=== PATIENT | female | born 1960 | race Caucasian/White ===

== ENCOUNTER 2025-02-24 13:44 | Emergency (ER) | payer MEDICARE, SELFPAY ==
[2025-02-24 13:47] VITALS: BP 159/104
[2025-02-24 15:34] VITALS: BMI 23.5
[2025-02-24 15:49] VITALS: BP 170/99
--- NOTE | 2025-02-24 16:52 | ED.GENMED ---
History of Present Illness
General
Chief Complaint: Eye Problems
Source: patient
Exam Limitations: none
Time Seen by Provider: 02/24/25 16:27
History of Present Illness
History of Present Illness:
64yoF with no significant past medical history presenting for evaluation of right eye redness. Patient was doing some gardening outside yesterday. She started to notice a discomfort in her right eye and thought she may have gotten some mud in the
eye. She woke up this morning and noticed that her right eye was red. She went to urgent care for evaluation and a fluorescein stain was performed. She was diagnosed with a corneal abrasion and started on tobramycin drops. She was noted to be
hypertensive at urgent care and was sent to the ED for evaluation of this. She is asymptomatic from this perspective and denies any headache, chest pain, shortness of breath. She has no visual changes or photophobia. She wears contact lenses but
has been wearing glasses today.
Past History
Past History
ED Past Medical History: None
ED Past Surgical History: Gynecological (Total abdominal hysterectomy ) and Other (fibroid surgery )
Social History
Tobacco: Non-smoker
Alcohol: None
Personal:
Living: with family
Phy Exam
General Physical Exam
General Presentation: well appearing and no apparent distress
General Skin: warm, dry and cool
General Habitus: normal
General Mental: alert
ENT Exam
ENT Exam: normocephalic
Eye Exam
Eye Exam: PERRL, EOMI, visual kaye normal and other (R subconjunctival hemorrhage noted. No hyphema. PERRL. EOMs intact. Visual kaye normal. No uptake seen with fluorescein stain. Negative Magdalene sign.)
Right 20/: 60
Left 20/: 60
Pulmonary Exam
Pulmonary Exam: no respiratory distress
Neurological Exam
Neurological Exam: alert
Eleno Coma Scale
Eye Opening: Spontaneous
Verbal Response: Oriented
Motor Response: Obeys Commands
GCS Total Score: 15
Skin Exam
Skin Exam: normal color and warm/dry
Psychiatric Exam
Psychiatric Exam: normal mood/affect
Course
Orders/Labs/Results
Orders:
Orders
02/24/25 16:28
Visual Acuity- Treatment ONCE
02/24/25 17:23
Fluorescein Sodium [Ful-Vivien] 1 mg .ROUTE .STK-MED ONE
Tetracaine HCl [Tetracaine 0.5% Ophthalmic Solution] 1 drop .ROUTE .STK-MED ONE
Vital Signs
Initial and Last Documented VS:
Initial Vital Signs
Temp Pulse Resp BP Pulse Ox
98.5 F 110 16 159/104 100
02/24/25 13:47 02/24/25 13:47 02/24/25 13:47 02/24/25 13:47 02/24/25 13:47
Last Documented Vital Signs
Temp Pulse Resp BP Pulse Ox
98.5 F 98 22 168/99 98
02/24/25 13:47 02/24/25 17:10 02/24/25 15:49 02/24/25 17:10 02/24/25 17:10
MDM/Problems Addressed
Differential Diagnosis Includes:
64yoF who went to urgent care today for R eye redness and was sent to the ED for elevated BP. R subconjunctival hemorrhaged noted on exam. No evidence of hyphema or globe rupture noted. She denies any changes in vision. Visual acuity 20/60
bilaterally (without contact lenses). BP 168/99 here. She is asymptomatic from this perspective and there is no indication for further testing in the emergent department. She was advised to f/u with her PCP and eye doctor. ED return precautions
reviewed and she was discharged in stable condition.
*Pulse Oximetry
SaO2: 100
Oxygen Mode of Delivery: Room air
Patient hypoxic: no (100%)
*Critical Care Note
Total Time (30-74mins, 75-104mins- exclusive of procedures): Not Applicable
ED Attending Note
-
Portions of this chart may have been created with voice recognition software.� Occasional wrong word or��sound alike� substitutions may have occurred due to the inherent limitations of voice recognition software.
Discharge Plan
Departure
Patient Disposition: Home (Routine Discharge)
Date of Disposition: 02/24/25
Time of Disposition: 17:11
Patient with high blood pressure during this ER visit?: Yes
Discharge Problem:
Subconjunctival hemorrhage of right eye, Elevated blood pressure reading
Instructions: Subconjunctival Hemorrhage
Prescriptions:
No Action
multivitamin with folic acid [Tab-A-Madiha] 1 TABLET tablet
1 tab PO DAILY
Referrals:
UNKNOWN - PT NOT,INTERVIEWE [Family Provider]
Activity Restrictions/Additional Instructions:
Continue antibiotic drops as prescribed by urgent care.
Please call on Wednesday morning to schedule follow-up appointments with your eye doctor and family doctor.
Return to the ER with any worsening symptoms including chest pain, severe headache, or new vision changes.
Interventions
Interventions:
*Risk Screen - Suicide Last Done: 02/24/25 13:50
*General Assessment Last Done: 02/24/25 15:35
*Neglect/Abuse Screening Last Done: 02/24/25 13:50
*ED- Fall Risk Assessment Last Done: 02/24/25 15:35
*ED COVID-19 Vaccine History Last Done: 02/24/25 15:35
*Nursing Disposition Last Done: 02/24/25 17:17
Discharge Date and Time
Discharge Date/Time: 02/24/25 17:19
Print Language: SWAZI
[2025-02-24 17:09] VITALS: BP 170/93
[2025-02-24 17:10] VITALS: BP 168/99
== END 2025-02-24 17:19 | disposition home or self-care (01) ==
LOC: EMR 13:44
PROVIDERS: EMERGENCY PHYSICIAN Emergency Medicine
DX: R03.0 Elevated blood-pressure reading, without diagnosis of hypertension (principal); H11.31 Conjunctival hemorrhage, right eye
CPT/HCPCS: 99282